=== PATIENT | male | born 1990 | race Two or more races ===

== ENCOUNTER 2016-12-12 16:35 | Emergency (ER) | payer OTHER ==
[2016-12-12] MEDS ORDERED: HYDROCODONE/ACETAMINOPHEN 5/325MG TABLET ONE (17:56)
[2016-12-12] MEDS ORDERED: CYCLOBENZAPRINE HCL 10 MG TABLET ONE (17:56)
[2016-12-12 18:01] LABS: SPECIFIC GRAVITY 1.025 (1.001-1.030); URINE APPEARANCE CLEAR; URINE BILIRUBIN NEGATIVE (NEGATIVE); URINE BLOOD NEGATIVE (NEGATIVE); URINE COLOR YELLOW; URINE GLUCOSE (UA) NEGATIVE (NEGATIVE); URINE LEUKOCYTE ESTERASE NEGATIVE (NEGATIVE); URINE NITRITE NEGATIVE (NEGATIVE); URINE PROTEIN NEGATIVE (NEGATIVE); URINE UROBILINOGEN NORMAL (0-1 mg/dl)
--- NOTE | 2016-12-12 18:20 | RAD ---
Name: MARTÍN BEAVERS Exam: Chest/left RIBS Comparison: None Clinical history: Trauma yesterday. Left-sided rib pain. Findings: Single view of the chest is submitted. Heart, mediastinum and hilar structures are normal. There is no failure, infiltrate, pleural effusion or pneumothorax. Regional skeleton is unremarkable. 2. Radiograph of the left ribs are submitted. There is mild deformity of the lateral margins of the 11th ribs bilaterally and symmetrically. There is no acute fracture. There is no lytic or blastic lesion and no periosteal reaction. Impression: 1. No acute cardiopulmonary process 2. No current evidence for left rib fracture.
== END 2016-12-12 18:36 | disposition home or self-care (01) ==
LOC: ED 16:35
DX: T14.8 Other injury of unspecified body region (principal); V49.40XA Driver injured in collision with unspecified motor vehicles in traffic accident, initial encounter; Y92.410 Unspecified street and highway as the place of occurrence of the external cause
CPT/HCPCS: 81003; 71101; 99283 ×2; A9270